=== PATIENT | female | born 1995 | race Caucasian/White ===

== ENCOUNTER 2017-12-28 21:49 | Outpatient (CLI) | payer OTHER ==
[2017-12-28 23:01] LABS: ADD UMIC NO; UR ASCORBIC ACID NEGATIVE (NEGATIVE); UR BILIRUBIN (Dip) NEGATIVE (NEGATIVE); UR BLOOD (Dip) NEGATIVE (NEGATIVE); UR CLARITY CLEAR (CLEAR); UR COLOR YELLOW (YELLOW); UR GLUCOSE (Dip) NEGATIVE (NEGATIVE); UR KETONES (Dip) NEGATIVE (NEGATIVE); UR LEUKOCYTE ESTERASE (Dip) NEGATIVE Leu/ul (NEGATIVE); UR NITRITE (Dip) NEGATIVE (NEGATIVE); UR TOTAL PROTEIN (Dip) NEGATIVE (NEGATIVE); UR UROBILINOGEN (Dip) NEGATIVE (NEGATIVE)
== END 2017-12-29 02:14 | disposition home or self-care (01) ==
LOC: OBT 21:49 → L-D 21:50
DX: O62.9 Abnormality of forces of labor, unspecified (principal); Z3A.30 30 weeks gestation of pregnancy
CPT/HCPCS: 76818; 81003; 82731; 87086

== ENCOUNTER 2018-03-03 16:44 | Outpatient (CLI) | payer OTHER | END 2018-03-03 18:30 | disposition home or self-care (01) | LOC: OBT 16:44 → L-D 16:46 → OBT 18:30 | DX: O47.1 False labor at or after 37 completed weeks of gestation (principal); Z3A.39 39 weeks gestation of pregnancy | CPT/HCPCS: 76818 ==

== ENCOUNTER 2018-03-05 16:02 | Inpatient (IN) | payer OTHER ==
[2018-03-05] MEDS ORDERED: LACTATED RINGER'S 1,000 ML IV ×2 (16:06→18:21)
[2018-03-05] MEDS ORDERED: METHYLERGONOVINE 0.2 MG INJ IM (16:30)
[2018-03-05] MEDS ORDERED: MISOPROSTOL 200 MCG TAB PR (16:30)
[2018-03-05] MEDS ORDERED: OXYTOCIN 30 UNITS/LR 500 ML IV ×2 (16:30)
[2018-03-05] MEDS ORDERED: CARBOPROST 250 MCG INJ IM (16:30)
[2018-03-05 16:58] LABS: ADD MAN DIFF? NO
[2018-03-05 17:01] LABS: BASOPHILS % 0.3 % (0.0-2.0); EOSINOPHILS # 0.1 10^3/ul (0.0-0.5); EOSINOPHILS % 0.5 % (0.0-7.0); HEMATOCRIT 35.5 % (37.0-47.0); LYMPHOCYTES # 1.9 10^3/ul (0.8-2.9); LYMPHOCYTES % 19.1 % (15.0-51.0); MEAN CORPUSCULAR HEMOGLOBIN 29.1 pg (29.0-33.0); MEAN CORPUSCULAR HGB CONC 33.8 g/dl (32.0-37.0); MEAN PLATELET VOLUME 11.8 fl (7.4-10.4); MONOCYTE # 0.4 10^3/ul (0.3-0.9); MONOCYTES % 4.4 % (0.0-11.0); NEUTROPHIL # 7.3 10^3/ul (1.6-7.5); NEUTROPHILS % 75.3 % (39.0-77.0); PLATELET COUNT 183 10^3/UL (140-415); RED BLOOD COUNT 4.13 10^6/ul (4.20-5.40); RED CELL DISTRIBUTION WIDTH 12.4 % (11.5-14.5)
[2018-03-05 17:01] LABS: WHITE BLOOD COUNT 9.7 10^3/ul (4.8-10.8)
[2018-03-05 17:51] LABS: HEPATITIS B SURFACE ANTIGEN NEGATIVE (NEGATIVE)
[2018-03-05 18:14] LABS: INR 1.14; PROTIME 14.8 Sec (11.9-14.9); PT RATIO 1.2
[2018-03-05 18:15] LABS: PARTIAL THROMBOPLASTIN TIME 29.2 Sec (25.0-35.0)
[2018-03-05] MEDS: LACTATED RINGER'S 1,000 ML IV ×3 (18:46→22:34)
[2018-03-05] MEDS: OXYTOCIN 30 UNITS/LR 500 ML IV (18:53)
[2018-03-05] MEDS: AMPICILLIN 2 GM/NS (PMX) 100 ML IV (19:51)
[2018-03-05] MEDS ORDERED: FENTAnyl 2MCG/ML-ROPIV 0.2% 100 ML (22:29)
[2018-03-05] MEDS ORDERED: NALOXONE (0.4 MG/ML) INJ IV (23:30)
[2018-03-05] MEDS ORDERED: ONDANSETRON 4 MG INJ IV (23:30)
[2018-03-05] MEDS ORDERED: DIPHENHYDRAMINE 50 MG INJ IV (23:30)
[2018-03-06] MEDS: AMPICILLIN 1 GM/NS (PMX) 50 ML IV ×3 (00:11→08:05)
[2018-03-06] MEDS: FENTAnyl 2MCG/ML-ROPIV 0.2% 100 ML BAG EPI ×2 (03:59→09:32)
[2018-03-06] MEDS: LACTATED RINGER'S 1,000 ML IV (09:25)
[2018-03-06] MEDS: MINERAL OIL LIGHT 10 ML VIAL TOP (14:10)
[2018-03-06] MEDS: LIDOCAINE 1% (MPF) 30 ML INJ INJ (14:39)
[2018-03-06] MEDS: OXYTOCIN 30 UNITS/LR 500 ML IV (15:03)
[2018-03-06] MEDS ORDERED: OXYCODONE/ACETAMINOPHEN (5/325) TAB PO (16:00)
[2018-03-06] MEDS: IBUPROFEN 600 MG TAB PO ×2 (16:17→18:00)
[2018-03-06] MEDS ORDERED: LACTATED RINGER'S 1,000 ML IV* (16:54)
[2018-03-06] MEDS ORDERED: METHYLERGONOVINE 0.2 MG INJ IM (17:00)
[2018-03-06] MEDS ORDERED: OXYTOCIN 30 UNITS/LR 500 ML IV (17:00)
[2018-03-06] MEDS ORDERED: DIBUCAINE 1% 30 GM OINT PR (17:00)
[2018-03-06] MEDS ORDERED: ZOLPIDEM 5 MG TAB PO (17:00)
[2018-03-06] MEDS ORDERED: CARBOPROST 250 MCG INJ IM (17:00)
[2018-03-06] MEDS ORDERED: MISOPROSTOL 200 MCG TAB PR (17:00)
[2018-03-06] MEDS: HYDROCODONE/APAP (5/325) TAB PO ×2 (18:10→22:31)
[2018-03-06] MEDS: CEPHALEXIN 500 MG CAP PO (18:11)
[2018-03-06] MEDS: WITCH HAZEL/GLYCERIN PAD PR (18:12)
[2018-03-06] MEDS: LANOLIN 7 GM TUBE TOP (18:12)
[2018-03-06] MEDS: BENZOCAINE 20% 56 ML SPRAY TOP (18:12)
[2018-03-06 20:54] LABS: RAPID PLASMA REAGIN NONREACTIVE (NR)
[2018-03-06] MEDS: MAGNESIUM HYDROXIDE 30ML CUP PO (21:22)
[2018-03-06] MEDS: SENNA/DOCUSATE NA (8.6MG/50MG) TAB PO (21:22)
[2018-03-07] MEDS: CEPHALEXIN 500 MG CAP PO ×5 (00:02→23:53)
[2018-03-07] MEDS: IBUPROFEN 600 MG TAB PO ×5 (00:02→23:53)
[2018-03-07] MEDS: HYDROCODONE/APAP (5/325) TAB PO ×2 (04:30→22:24)
[2018-03-07 08:39] LABS: ADD MAN DIFF? NO
[2018-03-07 08:44] LABS: WHITE BLOOD COUNT 8.9 10^3/ul (4.8-10.8)
[2018-03-07 08:44] LABS: BASOPHILS % 0.5 % (0.0-2.0); EOSINOPHILS # 0.1 10^3/ul (0.0-0.5); EOSINOPHILS % 1.5 % (0.0-7.0); HEMATOCRIT 28.7 % (37.0-47.0); HEMOGLOBIN 9.6 g/dl (12.0-16.0); LYMPHOCYTES # 2.4 10^3/ul (0.8-2.9); LYMPHOCYTES % 27.1 % (15.0-51.0); MEAN CORPUSCULAR HGB CONC 33.4 g/dl (32.0-37.0); MEAN CORPUSCULAR VOLUME 86.7 fl (82.0-101.0); MEAN PLATELET VOLUME 11.7 fl (7.4-10.4); MONOCYTE # 0.6 10^3/ul (0.3-0.9); NEUTROPHIL # 5.6 10^3/ul (1.6-7.5); NEUTROPHILS % 63.2 % (39.0-77.0); PLATELET COUNT 131 10^3/UL (140-415); RED BLOOD COUNT 3.31 10^6/ul (4.20-5.40); RED CELL DISTRIBUTION WIDTH 12.5 % (11.5-14.5)
[2018-03-07] MEDS: MAGNESIUM HYDROXIDE 30ML CUP PO ×2 (08:55→21:07)
[2018-03-07] MEDS: SENNA/DOCUSATE NA (8.6MG/50MG) TAB PO ×2 (08:55→21:07)
[2018-03-08] MEDS: WITCH HAZEL/GLYCERIN PAD PR ×2 (01:20→09:53)
[2018-03-08] MEDS: BENZOCAINE 20% 56 ML SPRAY TOP ×2 (01:20→09:53)
[2018-03-08] MEDS: CEPHALEXIN 500 MG CAP PO ×2 (06:19→11:41)
[2018-03-08] MEDS: IBUPROFEN 600 MG TAB PO ×2 (06:19→11:41)
[2018-03-08] MEDS: MAGNESIUM HYDROXIDE 30ML CUP PO (09:00)
[2018-03-08] MEDS: SENNA/DOCUSATE NA (8.6MG/50MG) TAB PO (09:00)
[2018-03-08] MEDS: VARICELLA VACCINE LIVE/PF 1,350 UNIT/0.5 ML ML SC* (09:30)
[2018-03-08] MEDS: MEASLES,MUMPS,RUBELLA VACCINE INJ SC* (09:30)
[2018-03-08] MEDS: LANOLIN 7 GM TUBE TOP (09:53)
[2018-03-08] MEDS: DIPHTH/TET/ACEL PERTUSS (ADULT) 0.5 ML VIAL IM* (11:42)
== END 2018-03-08 14:15 | disposition home or self-care (01) | DRG 775 ==
LOC: PP1 03-06 16:38 → L-D 16:02
PROVIDERS: Obstetrics & Gynecology
PROC: 10E0XZZ Delivery of Products of Conception, External Approach (ICD-10-PCS; principal; 2018-03-06)
PROC: 0HQ9XZZ Repair Perineum Skin, External Approach (ICD-10-PCS; 2018-03-06)
PROC: 3E033VJ Introduction of Other Hormone into Peripheral Vein, Percutaneous Approach (ICD-10-PCS; 2018-03-06)
DX: O70.0 First degree perineal laceration during delivery (principal); Z3A.39 39 weeks gestation of pregnancy; Z37.0 Single live birth
CPT/HCPCS: 62319; 76815; 85025; 85610; 85730; 86592; 86850; 86900; 86901; 87340; 90715

== ENCOUNTER 2018-07-11 12:56 | Emergency (ER) | payer OTHER | END 2018-07-11 13:57 | disposition left against medical advice (07) | LOC: FTE 12:56 | DX: O20.9 Hemorrhage in early pregnancy, unspecified (principal); Z3A.00 Weeks of gestation of pregnancy not specified | CPT/HCPCS: 81025; 99282 ==